=== PATIENT | male | born 1985 | race Caucasian/White ===

== ENCOUNTER 2017-09-13 13:16 | Emergency (ER) | payer MEDICAID ==
[~2017-09-13] VITALS: Ht 188 cm; Wt 95.3 kg
[2017-09-13 13:48] VITALS: BP 148/82
--- NOTE | 2017-09-13 14:00 | NUR ---
Patient to bed 11.
--- NOTE | 2017-09-13 14:05 | NUR ---
31/M BIB SELF C/O RIGHT HAND PAIN S/P HITTING PUNCHING BAG 4 DAYS AGO. PT DENIES ANY MEDICAL HX. AAOX4 WITH EVEN AND STEADY GAIT; LUNGS CLEAR BL; PATIENT STATES PAIN OF 9/10 AT THIS TIME; VSS; PATIENT POSITIONED FOR COMFORT; HOB ELEVATED; BEDRAILS UP X2; BED DOWN. ER MD MADE AWARE OF PT STATUS.
--- NOTE | 2017-09-13 14:11 | NUR ---
XRAY at bedside.
--- NOTE | 2017-09-13 14:18 | NUR ---
Patient being evaluated by DR NORTH AT BEDSIDE.
--- NOTE | 2017-09-13 14:22 | NUR ---
family at bedside.
[2017-09-13] MEDS ORDERED: IBUPROFEN 400 MG TAB PO ONE (14:25)
--- NOTE | 2017-09-13 14:38 | NUR ---
Patient being reevaluated by DR NORTH AT BEDSIDE.
[2017-09-13 14:43] VITALS: BP 121/71
== END 2017-09-13 14:43 | disposition home or self-care (01) ==
LOC: MED 13:16
DX: S62.396A Other fracture of fifth metacarpal bone, right hand, initial encounter for closed fracture (principal); W21.89XA Striking against or struck by other sports equipment, initial encounter; Y93.89 Activity, other specified; Y92.89 Other specified places as the place of occurrence of the external cause; Y99.8 Other external cause status
CPT/HCPCS: 73130; 99284